=== PATIENT | female | born 1990 | race Hispanic/Latino ===

== ENCOUNTER 2017-10-23 08:05 | Inpatient (IN) | payer OTHER ==
[~2017-10-23] VITALS: Ht 157.5 cm; Wt 88.9 kg
[2017-10-23 08:35] VITALS: BP 113/65
[2017-10-23 09:56] LABS: ABSOLUTE BASOPHIL COUNT 0 /CUMM (0.0-0.2); ABSOLUTE EOSINOPHIL COUNT 0.1 /CUMM (0.0-0.7); ABSOLUTE GRANULOCYTE CT 5.7 /CUMM (1.4-6.5); ABSOLUTE LYMPH COUNT 2.1 /CUMM (1.2-3.4); ABSOLUTE MONOCYTE COUNT 0.6 /CUMM (0.10-0.60); BASOPHIL % 0.5 % (0.0-2.0); EOSINOPHIL % 1.7 % (0-5); GRANULOCYTE % 66.9 % (42.2-75.2); HEMATOCRIT 36.3 % (37-47); MEAN CORPUSCULAR HGB 28.9 PG (27.0-31.0); MEAN CORPUSCULAR HGB CONC 33.9 G/DL (33.0-37.0); MEAN CORPUSCULAR VOLUME 85.4 FL (81.0-99.0); MEAN PLATELET VOLUME 12.1 FL (7.4-10.4); PLATELET COUNT 278 /CUMM (130-400); RBC DISTRIBUTION WIDTH 15.5 % (11.5-14.5); RED BLOOD CELL CT 4.25 /CUMM (4.20-5.40); WHITE BLOOD CELL COUNT 8.6 /CUMM (4.8-10.8)
--- NOTE | 2017-10-24 17:02 | History & Physical Pre-Op ---
General Information and HPI History of Present Illness: Tissue is a 27-year-old 2 para 1 LMP 01/10/2017 EDC 10/17/2017 at 41 weeks with a history of gestational diabetes admitted for induction of labor. She has a poor Mccurdy score will receive misoprostol cervical ripening followed by Pitocin induction. She has been co-managed by [facility] for her diabetes and it is under good control with diet alone. Allergies/Medications Allergies: Coded Allergies: latex (Severe, HIVES, ITCHING 10/23/17) Past History Medical History Isolation History: Standard Surgical History Pertinent Surgical History: none Past Family/Social History Psychosocial History Smoking Status: Never Smoked Review of Systems Review of Systems Constitutional: Reports: no symptoms. EENTM: Reports: no symptoms. Cardiovascular: Reports: no symptoms. Respiratory: Reports: no symptoms. GI: Reports: no symptoms. Genitourinary: Reports: no symptoms. Musculoskeletal: Reports: no symptoms. Skin: Reports: no symptoms. Neurological/Psychological: Reports: no symptoms. Hematologic/Endocrine: Reports: no symptoms. Immunologic/Allergic: Reports: no symptoms. All Other Systems: Reviewed and Negative Exam & Diagnostic Data Last 24 Hrs of Vital Signs/I&O Vital signs stable afebrile Physical Exam: HEENT: Normocephalic atraumatic Chest: Clear to auscultation bilaterally Cardiovascular: Normal S1-S2 normal Abdomen: Gravid estimated weight 8 pounds Extremities: No clubbing cyanosis or edema Pelvic: Long closed posterior thick Extremity is: No clubbing cyanosis or edema Assessment/Plan Assessment/Plan: 41 week gestational diabetes poor Mccurdy score Plan: Misoprostol cervical ripening followed by Pitocin As Ranked By This Provider Problem List: 1.
[2017-10-24] MEDS ORDERED: IBUPROFEN800 M1 PO (17:04)
--- NOTE | 2017-10-24 17:04 | Labor & Delivery Summary ---
Delivery Summary Vaginal Delivery: Vaginal: vertex Episiotomy/Lacerations: Episiotomy/Lacerations: none Placenta: Placenta: spontanteous, normal, 3 vessel Anesthesia: epidural Baby's Weight: Pending skin to skin Apgars - 1 Min: 9 Apgars - 5 Min: 9
[2017-10-25 08:16] LABS: ABSOLUTE BASOPHIL COUNT 0 /CUMM (0.0-0.2); ABSOLUTE EOSINOPHIL COUNT 0.2 /CUMM (0.0-0.7); ABSOLUTE GRANULOCYTE CT 9.6 /CUMM (1.4-6.5); ABSOLUTE LYMPH COUNT 2.4 /CUMM (1.2-3.4); ABSOLUTE MONOCYTE COUNT 0.9 /CUMM (0.10-0.60); BASOPHIL % 0.2 % (0.0-2.0); EOSINOPHIL % 1.3 % (0-5); GRANULOCYTE % 73.4 % (42.2-75.2); HEMATOCRIT 32.9 % (37-47); MEAN CORPUSCULAR HGB 28.9 PG (27.0-31.0); MEAN CORPUSCULAR HGB CONC 33.6 G/DL (33.0-37.0); MEAN PLATELET VOLUME 10.5 FL (7.4-10.4); PLATELET COUNT 234 /CUMM (130-400); RBC DISTRIBUTION WIDTH 15.8 % (11.5-14.5); RED BLOOD CELL CT 3.82 /CUMM (4.20-5.40)
[2017-10-25 08:26] LABS: WHITE BLOOD CELL COUNT 13.1 /CUMM (4.8-10.8)
--- NOTE | 2017-10-25 12:37 | PN- Post Delivery/GYN ---
Subjective Subjective: NO COMPLAINTS BREAST FEEDING Objective Last 24 Hrs of Vital Signs/I&O PER CHART STABLE Physical Exam: PE THIN HF IN NAD ABD SOFT NT FUNDUS FIRM EXT -EDEMA-HOMANS LOCHIA MODERATE Assessment/Plan Assessment/Plan ASSESS S/PNSVD PLAN EDUCATION
== END 2017-10-26 12:30 | DRG 560 ==
LOC: GNO 08:05
PROVIDERS: Obstetrics & Gynecology
PROC: 3E0P7VZ Introduction of Hormone into Female Reproductive, Via Natural or Artificial Opening (ICD-10-PCS; principal; 2017-10-24)
PROC: 10E0XZZ Delivery of Products of Conception, External Approach (ICD-10-PCS; principal; 2017-10-24)
PROC: 10907ZC Drainage of Amniotic Fluid, Therapeutic from Products of Conception, Via Natural or Artificial Opening (ICD-10-PCS; principal; 2017-10-24)
DX: O24.420 Gestational diabetes mellitus in childbirth, diet controlled (principal); Z3A.41 41 weeks gestation of pregnancy; Z37.0 Single live birth; Z91.040 Latex allergy status
CPT/HCPCS: GNOP; GNOS; 36415; 81001; 87086; J7120